=== PATIENT | female | born 1980 | race African-American/Black ===

== ENCOUNTER 2017-04-12 05:53 | Emergency (ER) | payer MEDICAID ==
[~2017-04-12] VITALS: Ht 162.6 cm; Wt 77.1 kg
[2017-04-12] MEDS ORDERED: IBUPROFEN600 MG ORAL (06:12)
[2017-04-12] MEDS ORDERED: PENICILLIN V P500 MG ORAL (06:12)
[2017-04-12 06:25] VITALS: BP 122/80
[2017-04-12 06:26] VITALS: BP 122/80
--- NOTE | 2017-04-15 12:20 | Emergency Room Report ---
History of Present Illness General Chief Complaint: Toothache Source: Patient Present Illness HPI Patient is a 36-year-old female who presented after increased dental pain. Patient had a gradual onset of symptoms. Patient reports having prior dental problems. She denied and he had difficulty opening her mouth. She denied any fever. Patient had a gradual onset of symptoms over the past 2 days. Pain was located to the left lower mandibular region at second molar. She denies medication allergies. She denies being . Allergies: Coded Allergies: No Known Allergies (Unverified , 04/12/17) Patient History Past Medical History: see triage record Last Menstrual Period: UKN Now: No Reviewed Nursing Documentation: PMH: Agreed, PSxH: Agreed Nursing Documentation-PMH Past Medical History: No Stated History Review of Systems All Other Systems: negative except mentioned in HPI Physical Exam Vital Signs Date Time Temp Pulse Resp B/P Pulse Ox O2 Delivery O2 Flow Rate FiO2 04/12/17 06:02 98.2 80 14 121/66 100 Room Air General Appearance: well appearing, no apparent distress, alert, GCS 15 Head: normocephalic, atraumatic ENT: hearing grossly normal, normal voice, other - dental caries to left lower second molar Neck: full range of motion, supple Respiratory: no respiratory distress, speaking full sentences Musculoskeletal: no calf tenderness Neurologic: normal gait Psychiatric: mood/affect normal Skin: no rash Medical Decision Making Diagnostic Impression: Primary Impression: Dental caries ER Course Patient presented for dental pain. Differential diagnosis included but was not limited to trigeminal neuralgia, dental abscess, dry socket, osteomyelitis, nerve injury. The patient was noted to have a benign exam. There is no evidence of infection. The patient is advised to follow up with primary care doctor in 1-2 days. Patient is advised to return if any worsening condition or if any changes in status that are concerning. Last Vital Signs Date Time Temp Pulse Resp B/P Pulse Ox O2 Delivery O2 Flow Rate FiO2 04/12/17 06:26 98.2 16 122/80 100 Room Air 04/12/17 06:25 80 Status: improved Disposition: HOME, SELF-CARE Condition: Stable Scripts Ibuprofen* (MOTRIN*) 600 Mg Tablet 600 MG ORAL Q8H Y for For Pain, #30 TAB 0 Refills Prov: Saran Toribio 04/12/17 Penicillin V Potassium* (PENVK*) 500 Mg Tablet 500 MG ORAL TWICE A DAY, #28 TAB Prov: Saran Toribio 04/12/17 Referrals: NOT CHOSEN IPA/MD,REFERRING (PCP) Patient Instructions: Dental Pain Saran Toribio Apr 15, 2017 12:20
== END 2017-04-12 06:26 | disposition home or self-care (01) ==
LOC: EMR 06:05
DX: K02.9 Dental caries, unspecified (principal)
CPT/HCPCS: 99284